=== PATIENT | female | born 1940 | race Caucasian/White ===

== ENCOUNTER → 2018-09-11 12:17 | Outpatient (CLI) | payer MEDICARE, OTHER, SELFPAY ==
--- NOTE | 2018-09-11 12:24 | DI.RAD.S_ITS ---
PROCEDURE: XR CERVICAL SPINE 4V OR 5V INDICATIONS: headache and neck pain TECHNIQUE: 5 views of the cervical spine acquired. COMPARISON: None. FINDINGS: Bones: No fractures or dislocations to the C6 level. Trace anterolisthesis of C6 on C7 and trace retrolisthesis of C5 on C6. Diffuse facet arthropathy. Moderate narrowing of the C5-C6 disc space. Mild narrowing of the remaining cervical disc spaces. On the right, there is mild C3-C4 and C4-C5 bony foraminal narrowing. There is moderate C5-C6 bony foraminal stenosis. On the left, there is mild C3-C4 bony foraminal narrowing. Mild C5-C6 bony foraminal narrowing. Chronic ossicle projecting at the tip of the C7 spinous process Soft tissues: No prevertebral soft tissue swelling. IMPRESSION: Multilevel cervical degeneration and facet arthropathy as detailed above. Bilateral bony foraminal stenoses involving C3-C6 on the right, and C3-C4 and C5-C6 on the left. Dictated by: Jm Miles M.D. on 09/11/2018 at 13:28 Approved by: Jm Miles M.D. on 09/11/2018 at 13:31
[2018-09-11 13:04] LABS: Hematocrit 43.6 % (36-46); Hemoglobin 14.6 g/dL (12.0-16.0); Mean Corpuscular HGB Conc 33.4 % (30-36); Mean Corpuscular Hemoglobin 31.9 PG (26-34); Mean Corpuscular Volume 95.3 fL (80-100); Platelet Count 223 X10^3/uL (150-400); Red Blood Cell Count 4.57 X10^6/uL (4.0-5.2); Red Cell Distribution Width 13.6 % (11.6-14.8); White Blood Cell Count 6.3 X10^3/uL (4.5-11.0)
[2018-09-11 13:30] LABS: Erythrocyte Sedimentation Rate 7 MM/HR (0-20)
== END ==
PROVIDERS: PCP Internal Medicine; Visit Provider Family Medicine
DX: R51 Headache (principal)
CPT/HCPCS: 36415; 72050; 85027; 85651; 99213

== ENCOUNTER → 2023-05-04 12:45 | Outpatient (CLI) | payer MEDICARE, OTHER, SELFPAY ==
--- NOTE | 2023-05-04 12:48 | DI.RAD.S_ITS ---
PROCEDURE: XR LUMBAR SPINE MIN 4V INDICATIONS: back pain TECHNIQUE: 5 views of the lumbar spine were acquired, including bilateral oblique views. COMPARISON: None. FINDINGS: Bones: 5 nonrib-bearing vertebrae are present. There is mild rightward curvature of lumbar spine with apex at L3 level. Degenerative endplate changes and loss of disc height throughout lumbar spine is seen. No vertebral body compression fractures. No suspicious bony lesions. Soft tissues: Overlying bowel gas pattern is normal. No suspicious soft tissue calcifications. Oblique images: No pars defects. IMPRESSION: Degenerative disc disease throughout lumbar spine. No acute compression fracture or spondylolisthesis. No gross pars defect. Mild scoliosis as above. Dictated by: Alan Gray M.D. on 05/04/2023 at 13:34 Approved by: Alan Gray M.D. on 05/04/2023 at 13:37
== END ==
PROVIDERS: PCP Internal Medicine Geriatric Medicine; Referring Provider Physical Medicine & Rehabilitation; Visit Provider Physical Medicine & Rehabilitation
DX: M51.36 Other intervertebral disc degeneration, lumbar region (principal); M41.9 Scoliosis, unspecified; M54.9 Dorsalgia, unspecified
CPT/HCPCS: 72110

== ENCOUNTER → 2023-05-11 09:07 | Outpatient (CLI) | payer MEDICARE, OTHER, SELFPAY ==
--- NOTE | 2023-05-11 09:08 | DI.MRI.S_ITS ---
PROCEDURE: MR LUMBAR SPINE WO CON INDICATIONS: Right L5-S1 radiculopathy TECHNIQUE: Noncontrast sagittal T1 spin echo and T2 fast echo, sagittal STIR, and T2 fast spin echo through the lumbar spine. In cases with scoliosis, additional coronal T2 fast spin echo may be performed. COMPARISON: [facility], CR, XR LUMBAR SPINE MIN 4V, 05/04/2023, 12:49. FINDINGS: Image quality: Excellent. Alignment and Curvature: There is normal bony alignment. Bone Marrow: Degenerative endplate changes are present he scratched dysfunction. No acute vertebral body compression fractures. Spinal Cord: Conus medullaris terminates at the L1 level. Visualized cord demonstrates normal signal and size. Paraspinous Soft Tissues: No paravertebral masses. Left peripelvic cysts are present. T12-L1: Disc desiccation and small posterior disc bulge. Facet arthropathy and thickening of ligamentum flavum. Mild central canal stenosis. No neural foraminal stenosis. L1-L2: Disc desiccation and posterior disc bulge. Facet arthropathy and thickening of the flavum. Mild central canal stenosis. Mild bilateral neural foraminal stenosis. L2-L3: Disc desiccation and small posterior disc bulge. Facet arthropathy and thickening of ligamentum flavum. Epidural lipomatosis. Mild central canal stenosis. Mild neural foraminal stenosis. L3-L4: Disc desiccation and height loss. Small posterior disc bulge. Facet arthropathy and thickening of the flavum. Moderate central canal stenosis. Moderate left neural foraminal stenosis. No right neural foraminal stenosis. L4-L5: Severe disc desiccation height loss. Posterior disc bulge. Facet arthropathy and thickening of the ligamentum flavum. Epidural lipomatosis. Severe central canal stenosis. Moderate right and severe left neural foraminal stenosis. L5-S1: Disc desiccation. Small posterior disc bulge. Facet arthropathy. Mild left and moderate right neural foraminal stenosis. IMPRESSION: 1. Multilevel degenerative changes of the lumbar spine. This is worse L4-L5 with severe central canal stenosis. There is moderate right and severe left neural foraminal stenosis at this level. 2. Multilevel central canal stenosis, moderate at L3-L4 and severe at L4-5. 3. Additional levels of mild and moderate neural foraminal stenosis, as described above. Dictated by: Durga Garcia M.D. on 05/11/2023 at 11:38 Approved by: Durga Garcia M.D. on 05/11/2023 at 11:46
== END ==
PROVIDERS: PCP Internal Medicine Geriatric Medicine; Referring Provider Physical Medicine & Rehabilitation; Visit Provider Physical Medicine & Rehabilitation
DX: M47.26 Other spondylosis with radiculopathy, lumbar region (principal); M47.27 Other spondylosis with radiculopathy, lumbosacral region; M48.061 Spinal stenosis, lumbar region without neurogenic claudication; M48.07 Spinal stenosis, lumbosacral region
CPT/HCPCS: 72148

== ENCOUNTER 2023-06-12 12:38 | Outpatient (CLI) | payer MEDICARE, OTHER, SELFPAY ==
[2023-06-12] VITALS (8 sets, daily range): BP systolic 139–167; BP diastolic 69–81; PULSE 65–73; RESP 18–20; TEMP 35.9; O2SAT 95–99
--- NOTE | 2023-06-12 12:39 | DI.RAD.S_ITS ---
PROCEDURE: PAIN L/S TRANSFORAMINAL INJECT INDICATIONS: SPONDYLOSIS COMPARISON: [facility], CR, XR LUMBAR SPINE MIN 4V, 05/04/2023, 12:49. FINDINGS: Fluoroscopic spot filming was performed to verify placement of a spinal needle at the L4-L5 level, as labeled on the films. Appropriate location of the needle tip was confirmed by injection of iodinated contrast. IMPRESSION: Intraprocedural examination within normal limits. Dictated by: Tim Perez M.D. on 06/12/2023 at 19:34 Approved by: Tim Preez M.D. on 06/12/2023 at 19:34
[2023-06-12] MEDS: MIDAZOLAM 2 MG/2 ML VIAL IV (13:34)
[2023-06-12] MEDS: DEXAMETHASONE 10 MG/ML VIAL INJ (13:40)
[2023-06-12] MEDS: BUPIVACAINE 0.25% (PF) VIAL 2 ML INJ (13:40)
[2023-06-12] MEDS: IOPAMIDOL 15 ML VIAL 3 ML INJ (13:40)
[2023-06-12] MEDS: BETAMETHASONE 30 MG/5 ML MDV 6 MG INJ (13:40)
--- NOTE | 2023-06-12 13:53 | P.PCN_ITS ---
Date/Time/Diagnoses Date of procedure: 06/12/23 Time of procedure: 13:54 Pre-procedure diagnosis: 1. FORAMINAL STENOSIS WITH LE SYMPTOMS Post-procedure diagnosis: same Procedure Notes Procedure: 1. FLUOROSCOPICALLY GUIDED CONTRAST CONTROLLED TRANSFORAMINAL EPIDURAL STEROID INJECTION - RIGHT L4/5 TFESI Indications: Diya is referred by Dr. Maria for treatment of Foraminal Stenosis with Right LE Symptoms Physician: Marko Rocha Total Fluoroscopy time (seconds): 8 Total sedation minutes: 14 Complications: none Procedure in detail & Post-procedure care: FINDINGS Foraminal Nerve Root Compression secondary to disc disease and facet hypertrophy DESCRIPTION OF PROCEDURE Following review of allergy and review of potential side effects and complications, including, but not necessarily limited to, infection, allergic reaction, local tissue breakdown, stroke, temporary or permanent nerve injury, paralysis, and possible , the patient indicated that the patient understood and agreed to proceed. An informed consent document was signed by the patient, witnessed by a nurse, and placed in the patient's chart. Additionally, other treatment options including medications, modalities, and physical therapy were reviewed with the patient. After review of previous anaesthesic history and IV conscious sedation the patient was deemed safe to proceed with today?s procedure with IV conscious sedation as ASA class II designation. Safety time-out was performed to confirm patient ID, procedure to be performed and site of procedure. IV sedation was accomplished with a combination of 2mg of Versed was administered by the RN after DO order, titrated to patient comfort during the course of the procedure while the patient remained responsive to all verbal commands In the prone position following sterile prep and drape of the lumbar region, the right L4/5 posterior neuroforamen was identified fluoroscopically. The skin was anesthetized via a 25-gauge 1.5-inch needle with 1% lidocaine solution. At this point, a 25-gauge 3.5-inch spinal needle was atraumatically introduced and advanced under fluoroscopic guidance through the posterior right L4/5 neuroforamen to approximately the anterior aspect of the canal. Depth was confirmed on lateral view. Following negative aspiration, injection of approximately 1.5cc of Isovue 200 under live fluoroscopy in the AP view con firmed excellent flow along the nerve root, into the epidural space without vascular or intrathecal uptake observed Radiological data, including multiple fluoroscopic views of the lumbosacral spine, reveal a spinal needle at the right L4/5 posterior neuroforamen. Subsequent views show flow of contrast material flowing superiorly and inferiorly along the nerve root confirming epidural flow. Subsequently, a test dose of 1.5 cc of 1% lidocaine solution was administered and patient was observed for two minutes for signs or symptoms of complications, including abdominal pain, shortness of breath, bilateral upper or lower extremity weakness, nausea and vomiting, prior to steroid injection. At this point, a total of 2cc or 10mg of dexamethasone and 6mg of betamethasone was injected without incident. The procedure tolerated the procedure well without signs or symptoms of complications prior to transfer to the recovery area continued monitoring without incident. The patient was then transferred to the recovery area where they were observed for an appropriate time after the injection. The patient reported a VAS score of 7 prior to the procedure and a post- procedure VAS of 1. POST OP INSTRUCTIONS The patient was provided a Pain Log to continue to record their response to the target-specific procedure prior to follow-up visit with their referring p hysician. Additionally, specific post-injection care instructions and a contact number to our office were provided if concerns arise regarding possible complications associated with the procedure are suspected.
== END 2023-06-12 14:10 | disposition home or self-care (01) ==
PROVIDERS: PCP Internal Medicine Geriatric Medicine; Referring Provider Physical Medicine & Rehabilitation; Visit Provider Physical Medicine & Rehabilitation
DX: M48.061 Spinal stenosis, lumbar region without neurogenic claudication (principal); M51.16 Intervertebral disc disorders with radiculopathy, lumbar region; M47.26 Other spondylosis with radiculopathy, lumbar region
CPT/HCPCS: 64483; 99152; J0702; J1100; J2250; J3490